=== PATIENT | female | born 1980 | race Caucasian/White ===

== ENCOUNTER 2022-02-22 22:27 | Emergency (ER) | payer SELFPAY ==
[~2022-02-22] VITALS: Ht 152.4 cm; Wt 41.3 kg
[2022-02-22 22:35] VITALS: BP 191/91
--- NOTE | 2022-02-22 22:41 | NUR ---
Dr. Graves at triage to exam patient.
--- NOTE | 2022-02-22 22:43 | NUR ---
Patient ambulated to chair B.
[2022-02-22] MEDS ORDERED: ACETAMINOPHEN EXTRA STRENGTH 500 MG TAB PO ONE (23:05)
--- NOTE | 2022-02-22 23:14 | NUR ---
PT TAKEN CT VIA W/C
--- NOTE | 2022-02-23 01:05 | NUR ---
S/W LASHONDA AT [facility]PART[facility]. PER LASHONDA "I WILL DISPATCH OFFICERS AT SOON THEY ARE AVAILABLE"
--- NOTE | 2022-02-23 01:14 | NUR ---
Patient discharged with v/s stable. Written and verbal after care instructions given and explained. Patient verbalized understanding. Ambulatory with steady gait. All questions addressed prior to discharge. Advised to follow up with PMD.
--- NOTE | 2022-02-23 02:57 | NUR ---
Jo ROBERT came and follow up patient. Patient left before Jo ROBERT came to ER.
== END 2022-02-23 01:14 | disposition home or self-care (01) ==
LOC: MED 22:27
DX: S05.92XA Unspecified injury of left eye and orbit, initial encounter (principal); Z88.8 Allergy status to other drugs, medicaments and biological substances; Y04.2XXA Assault by strike against or bumped into by another person, initial encounter; Y93.89 Activity, other specified; Y92.89 Other specified places as the place of occurrence of the external cause; Y99.8 Other external cause status
CPT/HCPCS: 70486; 81025; 99284